=== PATIENT | female | born 1975 | race Hispanic/Latino ===

== ENCOUNTER → 2025-03-15 13:19 | Outpatient (REF) | payer OTHER, SELFPAY | LOC: WDC 13:19 | PROVIDERS: ATTENDING PHYSICIAN Nurse Practitioner Family | DX: Z12.31 Encounter for screening mammogram for malignant neoplasm of breast (principal) | CPT/HCPCS: 77063; 77067 ==

== ENCOUNTER → 2025-03-27 16:24 | Outpatient (REF) | payer OTHER, SELFPAY | LOC: RAD 16:24 | PROVIDERS: ATTENDING PHYSICIAN Nurse Practitioner Family | DX: N95.0 Postmenopausal bleeding (principal) | CPT/HCPCS: 76830; 76856 ==

== ENCOUNTER → 2025-04-15 16:51 | Outpatient (REF) | payer OTHER, SELFPAY ==
[2025-04-16 12:09] LABS: Urine Albumin 3+ (Neg - Trace); Urine Bilirubin Negative (Negative); Urine Character Clear (Clear); Urine Color Yellow; Urine Glucose Negative (Negative); Urine Ketone Negative (Negative); Urine Leukocyte Negative (Negative); Urine Nitrite Negative (Negative); Urine Occult Blood 4+ (Negative); Urine Urobilinogen Negative (Neg - 1+)
[2025-04-16 12:16] LABS: Urine Squamous Cell 0-2 /LPF (Few)
[2025-04-16 12:17] LABS: Urine White Cell 0-2 /HPF (0-5)
[2025-04-16 12:20] LABS: % Eosinophils 2.3 % (0-6); % Immature Granulocytes 0.4 % (0-0.5); % Monocytes 4.8 % (1.7-9.3); % Neutrophils 69.5 % (42.2-75.2); ALT (SGPT) 18 U/L (0-35); AST (SGOT) 27 U/L (14-36); Absolute Basophils 0.1 10^3/uL (0-0.2); Absolute Eosinophils 0.2 10^3/uL (0-0.7); Absolute Lymphocytes 1.5 10^3/uL (1.2-3.4); Absolute Monocytes 0.3 10^3/uL (0.1-0.6); Absolute Neutrophils 4.7 10^3/uL (1.4-6.5); Albumin 4.5 g/dl (3.5-5.0); Alkaline Phosphatase 62 U/L (38-126); Blood Urea Nitrogen 25 mg/dl (7-17); Calcium 9.7 mg/dl (8.4-10.2); Carbon Dioxide 27 mmol/L (22-30); Chloride 106 mmol/L (98-107); Glucose 85 mg/dl (70-99); HDL Cholesterol 62 mg/dl; Hematocrit 36.9 % (37.0-47.0); Hemoglobin 12.2 g/dL (12.0-16.0); Iron 74 ug/dl (37-170); LDL Cholesterol, Calculated 88 mg/dl; Mean Corp Hgb Conc. 33.1 g/dL (33.0-37.0); Mean Corpuscular Hgb 29.6 pg (27.0-31.0); Mean Corpuscular Volume 89.6 fL (81.0-99.0); Mean Platelet Volume 11.1 fL (7.4-10.4); Nucleated Red Blood Cells % 0 %; Platelet Count 267 10^3/uL (130-400); Potassium 4.5 mmol/L (3.5-5.1); Red Blood Cell Count 4.12 10^6/uL (4.20-5.40); Sodium 143 mmol/L (135-145); Total Bilirubin 0.7 mg/dl (0.2-1.3); Total Cholesterol 177 mg/dl (50-199); Total Protein 7.7 g/dl (6.3-8.2); Triglyceride 138 mg/dl (10-149); Very Low Density Lipoprotein 27 mg/dl (0-30); White Blood Cell Count 6.8 10^3/uL (4.8-10.8); eGFR > 60.00
[2025-04-16 12:30] LABS: Percent Saturation 24 % (20-50); Total Iron Binding Capacity 307 ug/dl (265-497)
[2025-04-16 13:17] LABS: Glycohemoglobin (HgbA1c) 5.1 % (4.0-5.6)
== END ==
LOC: CLAB 16:51
PROVIDERS: ATTENDING PHYSICIAN Nurse Practitioner Family
DX: Z00.00 Encounter for general adult medical examination without abnormal findings (principal); Z68.22 Body mass index [BMI] 22.0-22.9, adult; E78.00 Pure hypercholesterolemia, unspecified; D64.9 Anemia, unspecified; N28.9 Disorder of kidney and ureter, unspecified
CPT/HCPCS: 80053; 80061; 81003; 81015; 82728; 83036; 83540; 83550; 85025

== ENCOUNTER 2025-04-23 20:12 | Emergency (ER) | payer SELFPAY ==
[2025-04-23 20:28] VITALS: BP 187/99
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
[2025-04-23 23:42] VITALS: BP 148/92
== END 2025-04-24 01:05 | disposition home or self-care (01) ==
LOC: EMR 20:12
PROVIDERS: EMERGENCY PHYSICIAN Emergency Medicine; FAMILY PHYSICIAN Physician Assistant Medical
DX: S13.4XXA Sprain of ligaments of cervical spine, initial encounter (principal); V43.52XA Car driver injured in collision with other type car in traffic accident, initial encounter
CPT/HCPCS: 99285; 71250; 72125

== ENCOUNTER 2025-07-15 06:16 | Day surgery (SDC) | payer OTHER, SELFPAY ==
[2025-06-20 14:01] VITALS: BMI 20.2
[2025-06-20 14:46] LABS: Hematocrit 35.8 % (37.0-47.0); Hemoglobin 12.2 g/dL (12.0-16.0); Mean Corp Hgb Conc. 34.1 g/dL (33.0-37.0); Mean Corpuscular Volume 85.9 fL (81.0-99.0); Nucleated Red Blood Cells % 0 %; Platelet Count 255 10^3/uL (130-400); Red Cell Dist. Width 12.1 % (11.5-14.5)
[2025-06-20 15:11] LABS: Blood Urea Nitrogen 22 mg/dl (7-17); Calcium 9.6 mg/dl (8.4-10.2); Carbon Dioxide 24 mmol/L (22-30); Chloride 104 mmol/L (98-107); Estimated Creatinine Clearance 42 ml/min; Glucose 80 mg/dl (70-99); Potassium 4.4 mmol/L (3.5-5.1); Sodium 136 mmol/L (135-145); eGFR 49.79
--- NOTE | 2025-07-08 11:09 | PTCARENOTE ---
Abnormal eGFR 49.79 collected 06/20/25, reported to Claudia at Dr Andrews's office
[2025-07-15] VITALS (10 sets, daily range): BP systolic 108–150; BP diastolic 63–88; BMI 20.5
[2025-07-15] MEDS: TYLENOL 1000 MG PO (11:16)
[2025-07-15] MEDS: NORMOSOL-R/PLASMALYTE-A 1000 IV (11:16)
== END 2025-07-15 15:32 | disposition home or self-care (01) ==
LOC: SDS 06:16
PROVIDERS: ATTENDING PHYSICIAN Obstetrics & Gynecology; FAMILY PHYSICIAN Family Medicine
DX: N84.0 Polyp of corpus uteri (principal); N85.8 Other specified noninflammatory disorders of uterus; N95.0 Postmenopausal bleeding
CPT/HCPCS: 58558; 36415; 80048; 85025; 86850; 86900; 86901; 88305; 93005